=== PATIENT | male | born 1965 | race Hispanic/Latino ===

== ENCOUNTER 2023-11-19 15:29 | Outpatient (CLI) | payer BC ==
[2023-11-19 16:54] LABS: Hematocrit 39.1 % (38.8-50.0); Mean Corpuscular HGB CONC 33.2 g/dL (32.0-36.0); Mean Corpuscular Hemoglobin 26.7 pg (27.0-33.0); Mean Corpuscular Volume 80.3 fl (81.2-95.1); Mean Platelet Volume 10.2 fl (7.4-10.4); Platelet Count 191 10x3/uL (150-450); RBC Distribution Width 14.2 % (11.5-14.5); Red Blood Cell (RBC) Count 4.87 10x6/uL (4.32-5.72); White Blood Cell (WBC) Count 5.7 10x3/uL (3.5-10.5)
[2023-11-19 17:11] LABS: INR-International Normal Ratio 1.1; PTT 30.2 sec (22.0-33.0); Prothrombin Time 11.7 sec (9.5-12.1)
[2023-11-19 17:15] LABS: Anion Gap 16 mmol/L (10-20); BUN (Urea Nitrogen) 17 mg/dL (8.4-25.7); Calc. Creatinine Clearance 0 mL/min (70-130); Calcium 8.9 mg/dL (7.8-10.44); Carbon Dioxide 21 mmol/L (22-29); Chloride 107 mmol/L (98-107); Estimated GFR 86; Glucose 134 mg/dL (70-105); Potassium 3.9 mmol/L (3.5-5.1); Sodium 140 mmol/L (136-145)
== END 2023-11-19 15:30 | disposition home or self-care (01) ==
LOC: LABBT 15:29
PROVIDERS: ATTEND Internal Medicine Cardiovascular Disease
DX: Z01.812 Encounter for preprocedural laboratory examination (principal); I48.19 Other persistent atrial fibrillation
CPT/HCPCS: 80048; 85027; 85610; 85730

== ENCOUNTER 2023-11-20 06:17 | Day surgery (SDC) | payer BC ==
[2023-11-19 16:11] VITALS: BMI 40.4
[2023-11-20] MEDS ORDERED: Protamine Sulfate 50 MG/5 ML VIAL ONE (07:08)
[2023-11-20] MEDS ORDERED: Heparin 10,000 UNITS/ 10 ML VIAL ONE (07:08)
[2023-11-20] MEDS ORDERED: Lidocaine 1% PF 5 ML VIAL ONE (08:41)
[2023-11-20] MEDS ORDERED: Rocuronium Bromide 10 MG/ML (10ML VIAL) ONE (08:41)
[2023-11-20] MEDS ORDERED: fentaNYL 50 mcg/mL 1 mL Vial ONE (08:41)
[2023-11-20] MEDS ORDERED: PROPOFOL 20 ML ONE (08:41)
[2023-11-20] MEDS ORDERED: PHENYLEPHRINE-NS 100 MCG/ML 10 ML SYRINGE ONE (08:41)
[2023-11-20] MEDS ORDERED: Sevoflurane 250 ML INH ANEST BOTTLE ONE (08:42)
[2023-11-20] MEDS ORDERED: Esmolol 100 MG/10 ML VIAL ONE (09:15)
[2023-11-20] MEDS ORDERED: Phenylephrine 40 MG/NS 250 ML 250 ML ONE (09:34)
[2023-11-20] MEDS ORDERED: SUGAMMADEX SODIUM 200 MG/2 ML VIAL ONE (10:12)
[2023-11-20] MEDS ORDERED: Isoproterenol 0.2 MG/1 ML AMP ONE ×2 (10:23→10:28)
[2023-11-20] MEDS ORDERED: Glycopyrrolate 0.2 MG/ML 5 ML SYRINGE ONE (13:54)
== END 2023-11-20 14:35 | disposition home or self-care (01) ==
LOC: SDC 06:17
PROVIDERS: ATTEND Internal Medicine Cardiovascular Disease
PROC: 4A027FZ Measurement of Cardiac Rhythm, Via Natural or Artificial Opening (ICD-10-PCS; principal; 2023-11-20)
DX: I48.3 Typical atrial flutter (principal); I48.19 Other persistent atrial fibrillation; I10 Essential (primary) hypertension; E78.5 Hyperlipidemia, unspecified; Z79.899 Other long term (current) drug therapy
CPT/HCPCS: 85347; 93005; 93655; 93656; C1732; C1753; C1760; C1884; C1893; C1894; J1644; J2704; J2720; J3010

== ENCOUNTER 2023-12-18 07:32 | Day surgery (SDC) | payer BC ==
[2023-12-17 15:47] VITALS: BMI 40.1
[2023-12-17 16:35] LABS: Hematocrit 39.5 % (38.8-50.0); Hemoglobin 13.1 g/dL (13.5-17.5); Mean Corpuscular HGB CONC 33.2 g/dL (32.0-36.0); Mean Corpuscular Hemoglobin 26.8 pg (27.0-33.0); Mean Corpuscular Volume 80.9 fL (81.2-95.1); Platelet Count 177 10x3/uL (150-450); RBC Distribution Width 14.6 % (11.5-14.5); Red Blood Cell (RBC) Count 4.88 10x6/uL (4.32-5.72); White Blood Cell (WBC) Count 5.1 10x3/uL (3.5-10.5)
[2023-12-17 16:47] LABS: INR-International Normal Ratio 1.1; PTT 29.9 sec (22.0-33.0)
[2023-12-17 16:48] LABS: Anion Gap 14 mmol/L (10-20); BUN (Urea Nitrogen) 16 mg/dL (8.4-25.7); Calc. Creatinine Clearance 147 mL/min (70-130); Carbon Dioxide 21 mmol/L (22-29); Chloride 108 mmol/L (98-107); Estimated GFR 90; Glucose 86 mg/dL (70-105); Potassium 4.2 mmol/L (3.5-5.1); Sodium 139 mmol/L (136-145)
[2023-12-18] MEDS ORDERED: Ondansetron PF 4 MG/2 ML Vial ONE (08:31)
[2023-12-18] MEDS ORDERED: SUGAMMADEX SODIUM 200 MG/2 ML VIAL ONE (08:31)
[2023-12-18] MEDS ORDERED: Rocuronium Bromide 10 MG/ML (10ML VIAL) ONE (08:31)
[2023-12-18] MEDS ORDERED: Dexamethasone 4 mg/ml Vial ONE (08:31)
[2023-12-18] MEDS ORDERED: Propofol 1,000 MG/100 ML VIAL IV ONE (08:32)
[2023-12-18] MEDS ORDERED: fentaNYL 50 mcg/mL 1 mL Vial ONE (08:32)
[2023-12-18] MEDS ORDERED: Lidocaine 1% PF 5 ML VIAL ONE (08:32)
[2023-12-18] MEDS ORDERED: PROPOFOL 20 ML ONE (09:27)
== END 2023-12-18 11:18 | disposition home or self-care (01) ==
LOC: SDC 07:32
PROVIDERS: ATTEND Internal Medicine Cardiovascular Disease
PROC: 5A2204Z Restoration of Cardiac Rhythm, Single (ICD-10-PCS; principal; 2023-12-18)
DX: I48.19 Other persistent atrial fibrillation (principal); I48.0 Paroxysmal atrial fibrillation; E78.5 Hyperlipidemia, unspecified; I42.9 Cardiomyopathy, unspecified; I25.10 Atherosclerotic heart disease of native coronary artery without angina pectoris; I10 Essential (primary) hypertension; Z79.01 Long term (current) use of anticoagulants; Z79.82 Long term (current) use of aspirin; Z79.899 Other long term (current) drug therapy
CPT/HCPCS: 80048; 85027; 85610; 85730; 92960; 93005; 93010; J1100; J2405; J2704; J3010